=== PATIENT | male | born 1975 | race African-American/Black ===

== ENCOUNTER 2016-04-13 15:31 | Emergency (ER) | payer SELFPAY ==
[~2016-04-13] VITALS: Ht 185.4 cm; Wt 100.0 kg
[2016-04-13 15:35] VITALS: BP 136/63; PULSE 78; RESP 12; TEMP 98; O2SAT 94
[2016-04-13] MEDS ORDERED: AUGM875T PO (20:00)
[2016-04-13] MEDS ORDERED: PRED-503 PO (20:00)
[2016-04-13] MEDS ORDERED: ULTR50TA5 PO (20:01)
== END 2016-04-13 17:20 | disposition left against medical advice (07) ==
LOC: EDBD → NED 15:31
DX: R68.89 Other general symptoms and signs (principal)
CPT/HCPCS: 99281

== ENCOUNTER 2016-04-13 19:14 | Emergency (ER) | payer SELFPAY ==
[~2016-04-13] VITALS: Ht 185.4 cm; Wt 90.0 kg
[2016-04-13 19:16] VITALS: BP 148/86; PULSE 70; RESP 18; TEMP 98.2; O2SAT 99
[2016-04-13] MEDS ORDERED: AUGM875T PO (20:00)
[2016-04-13] MEDS ORDERED: PRED-503 PO (20:00)
[2016-04-13] MEDS ORDERED: KETOROLAC TROMETHAMINE 60 MG/2 ML (IM) VIAL IM ONE ×2 (20:00→21:00)
[2016-04-13] MEDS ORDERED: AMOXICILLIN/CLAVULANATE K 875 MG TAB PO ONE ×2 (20:00→21:00)
[2016-04-13] MEDS ORDERED: ULTR50TA5 PO (20:01)
--- NOTE | 2016-04-13 20:01 | PD ---
HPI Chief Complaint: ENT Complaint Time Seen by Provider: 19:59 Travel History International Travel<30 days: No Contact w/Intl Traveler<30days: No Traveled to known affect area: No History of Present Illness HPI 41-year-old male presents to emergency department for evaluation of severe left ear pain with drainage 2 days. Patient denies trauma. No recent illnesses, fever, chills. States that he is concerned that there is infection and is moving down his neck. Denies any other symptoms at this time. PFSH Past Medical History Medical History: Denies Significant Hx Social History Alcohol Use: Yes (occasionally) Tobacco Use: Yes Substance Use: Yes Allergies-Medications (Allergen,Severity, Reaction): Coded Allergies: No Known Allergies (Unverified , 04/13/16) Reported Meds & Prescriptions Reported Meds & Active Scripts Active Ultram (Tramadol HCl) 50 Mg Tab 50 Mg PO Q6H PRN Deltasone (Prednisone) 20 Mg Tab 20 Mg PO BID 5 Days Augmentin (Amoxicillin-Clavulanate) 875-125 mg Tab 875 Mg PO BID 10 Days not for use in CrCl <30 ml/min. Review of Systems Except as stated in HPI: all other systems reviewed are Neg Physical Exam Narrative GENERAL: Well-nourished, well-developed male patient, ambulatory and in no acute distress SKIN: Warm and dry. HEAD: Normocephalic. No mastoid tenderness EARS: Bilateral pinnae and external canals appear within normal limits. The right tympanic membranes without erythema, dullness or perforation. The left tympanic membrane is dull with a small area of what appears to be perforation at 5:00 with purulent drainage in the canal. EYES: No scleral icterus. No injection or drainage. ENT: Mucosa pink and moist. No erythema or exudates. No uvular edema. No uvular , palatal, or tonsillar deviation. Airway patent. Nasal turbinates appear normal without nasal blood, purulent drainage or septal hematoma. NECK: Supple, trachea midline. Left anterior cervical lymphadenopathy. CARDIOVASCULAR: Regular rate and rhythm without murmurs, gallops, or rubs. RESPIRATORY: Breath sounds equal bilaterally. No accessory muscle use. Data Data Last Documented VS Vital Signs Date Time Temp Pulse Resp B/P Pulse Ox O2 Delivery O2 Flow Rate FiO2 04/13/16 19:16 98.2 70 18 148/86 99 Room Air Orders Ketorolac Inj (Toradol Inj) (04/13/16 20:00) Amoxicil-Clavulanate (Augmentin) (04/13/16 20:00) Amoxicil-Clavulanate (Augmentin) (04/13/16 21:00) Ketorolac Inj (Toradol Inj) (04/13/16 21:00) MDM Medical Decision Making Medical Screen Exam Complete: Yes Emergency Medical Condition: Yes Medical Record Reviewed: Yes Differential Diagnosis Otitis media chronic versus acute versus tympanic rupture versus perforation versus viral syndrome Narrative Course 41-year-old male presents to emergency department for evaluation of left ear pain and drainage. Physical exam is consistent with a left otitis media with rupture of the tympanic membrane. Patient will be started on oral antibiotics. He is encouraged to follow-up with primary care provider and return immediately with any acute worsening of symptoms. 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 Prov:Mariah Ernst 04/13/16 Disposition: 01 DISCHARGE HOME Condition: Stable Mariah Ernst Apr 13, 2016 20:01
== END 2016-04-13 20:51 | disposition home or self-care (01) ==
LOC: NEPB 19:14
DX: H66.92 Otitis media, unspecified, left ear (principal); H72.92 Unspecified perforation of tympanic membrane, left ear; Z72.0 Tobacco use
CPT/HCPCS: 96372; 99282; J1885